=== PATIENT | female | born 1965 | race Caucasian/White ===

== ENCOUNTER 2022-07-15 11:00 | Outpatient (CLI) | payer BC, OTHER | END 2022-07-15 11:01 | disposition home or self-care (01) | LOC: BURRAD 11:00 | PROVIDERS: ATTEND Physician Assistant | DX: M54.42 Lumbago with sciatica, left side (principal); M47.816 Spondylosis without myelopathy or radiculopathy, lumbar region | CPT/HCPCS: 72100 ==